=== PATIENT | male | born 1980 | race Two or more races ===

== ENCOUNTER 2018-08-14 17:30 | Emergency (ER) | payer SELFPAY ==
[~2018-08-14] VITALS: Ht 165.1 cm; Wt 108.9 kg
[2018-08-14 17:51] VITALS: BP 149/78
[2018-08-14] MEDS ORDERED: methylPREDNISolone SOD SUCC 125 MG/2 ML VL IM ONE (21:30)
[2018-08-14] MEDS ORDERED: HYDROcodone-ACET 10/325MG TAB PO ONE (21:30)
== END 2018-08-14 22:50 | disposition home or self-care (01) ==
LOC: ER 17:37
DX: S96.911A Strain of unspecified muscle and tendon at ankle and foot level, right foot, initial encounter (principal); W01.0XXA Fall on same level from slipping, tripping and stumbling without subsequent striking against object, initial encounter; Y93.89 Activity, other specified; Y99.8 Other external cause status; Y92.89 Other specified places as the place of occurrence of the external cause
CPT/HCPCS: 29515; 73590; 73610; 73620; 93971; 96372; 99284; J2930